=== PATIENT | female | born 1995 | race Asian ===

== ENCOUNTER 2020-05-10 19:18 | Emergency (ER) | payer OTHER ==
[~2020-05-10] VITALS: Ht 152.4 cm; Wt 61.2 kg
[2020-05-10 19:29] VITALS: BP_SYST 146
[2020-05-10] MEDS ORDERED: IBUPROFEN 600 MG TABLET PO ONE (21:15)
[2020-05-10 23:09] VITALS: BP_SYST 146
== END 2020-05-10 23:10 | disposition home or self-care (01) ==
LOC: SED 19:18
DX: M54.5 Low back pain (principal); M54.2 Cervicalgia; V49.49XA Driver injured in collision with other motor vehicles in traffic accident, initial encounter; Y93.89 Activity, other specified; Y92.413 State road as the place of occurrence of the external cause; Y99.8 Other external cause status
CPT/HCPCS: 71045; 81025; 99283